=== PATIENT | male | born 2000 | race Caucasian/White ===

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

== ENCOUNTER 2023-04-29 16:40 | Emergency (ER) | payer BC, SELFPAY ==
[2023-04-29 16:42] VITALS: BP 146/93; PULSE 121; RESP 20; TEMP 36.6; O2SAT 96
--- NOTE | 2023-04-29 17:36 | ED.GENADUL_ITS ---
Discharge Plan Disposition Patient Disposition: Home Condition: Good Discharge Details Clinical Impression: Contact with chainsaw as cause of accidental injury, Laceration of leg Primary Care Provider: Shravan Arreola ED Provider: Maegan Cartagena Discharge Instructions Instructions: Laceration (ED) Additional Instructions: Laceration was closed with deep and superficial sutures. Please monitor wound for signs infection clued redness, warmth, drainage, increased pain, fever/chills. Please return in 12-14 days for reevaluation and suture removal. Please try to avoid excess bending of the knee to put stress on the sutures. Keep wound clean, dry, covered. May shower and wash with running water and soap in 2 days but please avoid swimming or soaking the wound. May use Tylenol and ibuprofen as needed for discomfort. Please take the antibiotics as prescribed. Referrals: Shravan Arreola [Primary Care Provider] - Discharge Data Discharge Date/Time-TO BE ENTERED AT DEPARTURE: 04/29/23 19:23 Medical Decision Making Patient is a pleasant 22-year-old male, otherwise healthy, accompanied by mom, presenting today with chief complaint of left thigh laceration from a chainsaw. He reports a prior to arrival he was using a chainsaw when it excellently kicked back cutting his leg. Up-to-date on tetanus. Denies other injury the time of the incident. He is able to straight leg raise and ambulate. Denies any numbness or tingling. On exam, patient appears slightly anxious but nontoxic. He has a jagged laceration to the anterior left thigh approximately 7 cm in length. Sensation is intact around this area. No active bleeding. Patient is able to straight leg raise. Sensation intact distal down the leg. Patient I discussed this (procedural steps associated with closure with sutures. He was understanding wish to proceed. Please see procedural note. This was preformed using standard sterile technique. Area of anesthetized with Lidocaine with epi. This allowed for good anesthetic effect. Wound was then copiously irrigated and explored to base in bloodless field. There were a few fibers, likely from his pants, in the wound that were removed. No deep structure involvement, no muscular involvement, no defect in the fascia. Wound edges were revised as there were several areas that were curled and are dark in color. this allowed for better approximation of wound edges. Deep and superficial layers were then placed. Will begin on abx. All FB identified were removed. Tdap UTD. We discussed wound care in depth. Discussed strict return precautions. All of is questions and concerns were addressed, he is in agreement with this plan. HPI General Date/Time Provider Initiated Documentation: 04/29/23 17:30 . Limitations to Documentation: no limitations . Information obtained by: patient, family (mom) and RN notes reviewed . History of Present Illness 22 year old M presents to the emergency department with the chief complaint of left thigh laceration after chainsaw injury, described as severe, Quality is described as stabbing and aching, and is localized to the left and lower extremity. Patient reports no radiation. Patient started exp eriencing this minute(s) and it has been constant. No relieving factors improve symptom(s), No exacerbating factors reported . Patient notes no other symptoms.. Patient did receive the following treatments prior to arrival, none Related Data Allergies Allergy/AdvReac Type Severity Reaction Status Date / Time No Known Allergies Allergy Unverified 11/21/21 12:51 General Stated Complaint: Laceration RICH: 3 Review of Systems Constitutional Constitutional: Reports as per HPI and Denies fever(s) Musculoskeletal Musculoskeletal: Reports as per HPI Integumentary/Breasts Skin/Breast: Reports as per HPI Neurologic Neurologic: Reports as per HPI, Denies sensory deficit and Denies paresthesias PFSH All Active Problems (Updated 04/29/23 @ 19:01 by GERALDINE Ugalde) Contact with chainsaw as cause of accidental injury (Acute) Laceration of leg (Acute) Family History (Updated 04/29/23 @ 17:36 by Esvin Sanches) Other Asthma FHx: mental illness Heart disease Hypertension Social History Smoking/Tobacco Use Status: Never Smoking risk assessment performed?: Yes Alcohol Intake: never Substance use type: does not use Housing: house Do you feel safe at home: Yes Do you feel safe in your relationship?: Yes Exam Const General: cooperative, healthy appearing, comfortable, no acute distress, well developed and anxious Nutritional Appearance: average body habitus, well nourished and overweight Orientation: alert and awake Resp Effort & Inspection: normal respiratory effort, able to speak in complete sentences and no respiratory distress Cardio Rate: regular rate Rhythm: regular rhythm Skin Trauma: laceration (left thigh, jagged 7cm laceration, small amount of active bleeding) and other (no deep structure involvement, fibers noted in the wound) Neuro General: patient alert and patient awake Cognition: normal cognition Speech: speech normal Gait: antalgic Motor: strength 5/5 throughout (able to straight leg raise) Sensory Exam: no sensory deficits noted Extrem Upper/lower leg/hip images: 1. 7cm irregular laceration. into subQ, no muscular involvement noted. Small fibers are visualized, consistent with pants. Sensation is intact around and distal to the wound. Full ROM. Intact pulses. Course Vital Signs Vital signs: Vital Signs Temperature 36.6 C 04/29/23 16:42 Pulse 121 H 04/29/23 16:42 Respiratory Rate 20 04/29/23 16:42 Blood Pressure 146/93 H 04/29/23 16:42 Pulse Oximetry 96 04/29/23 16:42 Temperature 36.6 C 04/29/23 16:42 Pulse 121 H 04/29/23 16:42 Respiratory Rate 20 04/29/23 16:42 Blood Pressure 146/93 H 04/29/23 16:42 Pulse Oximetry 96 04/29/23 16:42 Oxygen Delivery Method Room Air 04/29/23 16:42 Oxygen Flow Rate 0 04/29/23 16:42 Pain Level 5 04/29/23 16:42 Procedures Laceration Laceration 1: Site: lower extremity Side (If applicable): left Size (cm): 7 Description: irregular and contaminated (pieces of pant fibers, remoeved) Depth: simple, single layer (into fat, no violation of fascia) Local Anesthetic: Lidocaine 1% and with Epi Amount of anesthesia used (mL): 18 Pre-repair: wound explored, irrigated extensively, deep structures intact, extensive debridement and wound margins revised Skin layer closed with: nylon Size (cm): 4-0 Number of sutures: 11 Technique: simple, interrupted and horizontal mattress Subcutaneous layer closed with: vicryl Size: 4-0 Number of sutures: 8 Technique: simple, interrupted
[2023-04-29] MEDS: Ibuprofen 600 MG TAB PO (17:46)
[2023-04-29] MEDS: Acetaminophen 500 MG TAB 1000 MG PO (17:46)
[2023-04-29 18:59] VITALS: BP 138/85; PULSE 77; TEMP 36.7; O2SAT 98
[2023-04-29 19:05] VITALS: BP 138/85; PULSE 77; RESP 16; O2SAT 98
== END 2023-04-29 19:23 | disposition home or self-care (01) ==
PROVIDERS: Emergency Provider Physician Assistant; PCP Family Medicine
DX: S81.812A Laceration without foreign body, left lower leg, initial encounter (principal); W29.3XXA Contact with powered garden and outdoor hand tools and machinery, initial encounter
CPT/HCPCS: 12032